=== PATIENT | male | born 1945 | race Caucasian/White ===

== ENCOUNTER → 2018-03-22 11:09 | Outpatient (CLI) | payer MEDICARE, OTHER, SELFPAY ==
[2018-03-22 12:44] LABS: PSA,Total - Annual Screen 2.38 ng/mL (0.00-4.00)
== END ==
PROVIDERS: Family Provider Family Medicine; PCP Family Medicine; Visit Provider Urology
DX: Z12.5 Encounter for screening for malignant neoplasm of prostate (principal)
CPT/HCPCS: 36415; 84153; G0103

== ENCOUNTER → 2019-04-23 10:22 | Outpatient (CLI) | payer MEDICARE, OTHER, SELFPAY ==
[2015-05-24 13:25] VITALS: BMI 25.7
[2019-04-23 12:09] LABS: PSA,Total - Annual Screen 2.25 ng/mL (0.00-4.00)
== END ==
PROVIDERS: Family Provider Family Medicine; PCP Family Medicine; Referring Provider Nurse Practitioner Adult Health; Visit Provider Nurse Practitioner Adult Health
DX: Z12.5 Encounter for screening for malignant neoplasm of prostate (principal)
CPT/HCPCS: 36415; 84153; G0103

== ENCOUNTER → 2020-05-22 | Outpatient (CLI) | payer MEDICARE, OTHER, SELFPAY ==
[2015-05-24 13:25] VITALS: BMI 25.7
[2020-05-22 15:10] LABS: PSA,Total - Annual Screen 2.71 ng/mL (0.00-4.00)
== END | disposition home or self-care (01) ==
LOC: LAB 14:03
PROVIDERS: PCP Family Medicine
DX: Z12.5 Encounter for screening for malignant neoplasm of prostate (principal)
CPT/HCPCS: 36415; 84153; G0103

== ENCOUNTER → 2020-08-13 | Outpatient (CLI) | payer MEDICARE, OTHER, SELFPAY | END | disposition home or self-care (01) | LOC: MTDU 17:16 | PROVIDERS: PCP Family Medicine; Referring Provider Nurse Practitioner Family; Visit Provider Nurse Practitioner Family | DX: J02.9 Acute pharyngitis, unspecified (principal); Z20.828 Contact with and (suspected) exposure to other viral communicable diseases | CPT/HCPCS: 87635; C9803; U0003 ==

== ENCOUNTER → 2021-06-11 12:15 | Outpatient (CLI) | payer MEDICARE, OTHER, SELFPAY ==
[2015-05-24 13:25] VITALS: BMI 25.7
[2021-06-11 13:07] LABS: PSA,Total - Annual Screen 3.16 ng/mL (0.00-4.00)
== END ==
PROVIDERS: PCP Family Medicine; Referring Provider Nurse Practitioner Adult Health; Visit Provider Nurse Practitioner Adult Health
DX: Z12.5 Encounter for screening for malignant neoplasm of prostate (principal)
CPT/HCPCS: 36415; 84153; G0103

== ENCOUNTER → 2022-06-15 | Outpatient (CLI) | payer MEDICARE, OTHER, SELFPAY ==
[2022-06-15 12:30] LABS: PSA,Total - Annual Screen 3.32 ng/mL (0.00-4.00)
== END | disposition home or self-care (01) ==
PROVIDERS: PCP Family Medicine; Referring Provider Urology; Visit Provider Urology
DX: Z12.5 Encounter for screening for malignant neoplasm of prostate (principal)
CPT/HCPCS: 36415; 84153; G0103

== ENCOUNTER → 2023-06-23 | Outpatient (CLI) | payer MEDICARE, OTHER, SELFPAY ==
[2023-06-23 13:03] LABS: PSA,Total - Annual Screen 4.56 ng/mL (0.00-4.00)
== END | disposition home or self-care (01) ==
LOC: LAB 11:30
PROVIDERS: PCP Family Medicine; Referring Provider Urology; Visit Provider Urology
DX: Z12.5 Encounter for screening for malignant neoplasm of prostate (principal)
CPT/HCPCS: 36415; 84153; G0103

== ENCOUNTER 2023-12-08 08:30 | Outpatient (RCR) | payer MEDICARE, OTHER, SELFPAY ==
--- NOTE | 2023-09-08 11:22 | HP.PTEVAL_ITS ---
Patient's Visit Information Visit Information Visit Information: LALO RUSH is a 77 year old M referred to Physical Therapy by Dr. Tito Lincoln MD with a diagnosis of Acute Left Sided LBP with Left Sided Sciatica. Date of Evaluation: 09/08/23 Physical Therapist: Aniya Hardwick DPT Visit Plan Frequency: 2x /Week Duration: 4 Weeks Plan: Focus on core strength/stabilization *PACEMAKER HEP Given IE: postural correction Subjective Subjective: Patient reports that he has had back issues for over 40 years- previously he has been told to do ex and keep it strong. About 3 months ago if he wakes up after sleeping on his stomach or on his right side- the left side of his back around the waist area is sore- 8-10- after an hour or 3 hour it goes away- he has some residual pain that goes away. He has a sleep number bed for the last 18 years and its has been fine. He has not had an x-ray yet and is planning on getting one after PT. He has a long history of back issues- he has not had any back surgeries- he was a runner for years and then he had to switch to cycling - up until this year he was doing about a 1,000 miles a week. He does some rotational exercises, sit ups, push ups and golfing. 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 The only pattern he notices is if he is on his stomach or his left side. He was diagnosed with osteoporosis in the mid he has a pacemaker and he has had two ablasions. He describes the pain as aggravating. He has more discomfort after an activity like gardening. As of two weeks ago it started radiating down the front of his leg to the ankle- more of a soreness and ache- no N/T or sharp pains- only on the left side. No buckling of weakness of the LE. No severe trauma or injuries to the back or lumbar spine. Sleep Number Bed: he has changed the number over the past few years- he has the bed flat- he likes to sleep on his side. He is sitting on a love seat in the living room and he likes to read and he is sitting in an office chair in his office. So he is sitting more than he has been before. PMHx/Meds: eliquis, uroxatral, trazodone, hydrochlorothiazide, lipitor, metroprolol, fozamax, flecainide, duloxetine, Objective Objective: Posture: forward head, rounded shoulder- can correct but is unable to maintain throughout treatment session Gait: no deviation noted HR/TR: able without UE A SLS: Left: 2-3 seconds Right: 5 seconds Sensation: WNL to gross touch bilateral LE Reflex: 2+ Bilateral LE patella ROM: WFL in all planes but does report discomfort with extension Strength: Core: fair minus, Hip: 4/5 throughout, Knee: 5/5, Ankle: 5/5 Flex: HS: moderate, Gastroc: moderate Palpation: tender along paraspinals of the left lumbar spine Special Test: prone lying increased symptoms, SKTC: did not change symptoms Special Tests L Hip NATALI - Intraarticular Pathology: Negative L Hip FADDIR - Labrum: Negative L Hip Trendelenberg - Glut Medius: Negative Balance/Special Test Scores Oswestry Low Back Score: 0 Goals Goal 1:: Patient will report participation in home exercise program activities a minimum of 5 days per week, as adjunct to skilled physical therapy intervention in preparation for independent home management upon discharge. Goal Time Frame: 4-6 Weeks Goal 2:: Patient will report no radicular s/s for 1 week to ease ADL's. Goal Time Frame: 4-6 Weeks Goal 3:: Patient will maintain proper posture t/o tx session to demo increased core s/s Goal Time Frame: 4-6 Weeks Goal 4:: Patient will report 80% better to ease ADL's. Goal Time Frame: 4-6 Weeks Rehabilitation Potential Physical Therapy Diagnosis: Patient presents with hypomobility- he has decreased LE and core strength/stabilization, flex and muscular endurance leading to poor posture and increased pain with ADL's. Rehabilitation Potential: Good Anticipated Interventions Patient/Client Instruction: Educate patient on: Benefits of Fitness Program Therapeutic Exercise to Include: Strength training, Endurance training, Balance training, Agility training, Body mechanics, Postural training, Flexibilty training, Neuromotor development, Dynamic Lumbar Stabilization and Scapular Strength/Stabilization For the Purpose of:: To improve muscle performance and motor function TENS: No (Pacemaker) Cryotherapy (ice pack, ice massage): Yes Thermo therapy (hot pack): Yes Text: Thank you for the opportunity to evaluate your patient. For Medicare and Medicare HMO plans, please review the plan of care and approve it. It will need to be FAXED BACK to us at [phone] for Medicare purposes. For Medicare only, by signing this I certify the plan of care. Please let me know if there are questions or concerns regarding this plan of care. Physician Signature: Date:
--- NOTE | 2023-10-04 11:56 | HP.PTREVAL ---
Re-Evaluation Intro: Dr. Tito Lincoln MD, It has been my pleasure to treat LALO RUSH over the last 9 visits for Acute Left Sided LBP with Left Sided Sciatica. Please see the progress note below for an update on the physical therapy plan of care! Subjective Subjective: Pt reports he still gets a pinching in the L LB, but he is much improved overall. Objective Objective/Function: LBP ranges from 3-8/10 Pt reports no L LE radiculopathy for greater than one week Pt is I with HEP Pt has progressed well with LE radiculopathy and overall pain. Still limited with IADL's. Plan Plan Plan: Continue with Focus on core strength/stabilization *PACEMAKER Balance/Gait/Functional tests Balance/Special Test Scores Oswestry Low Back Score: 4 Goals Goals Goal 1:: Patient will report participation in home exercise program activities a minimum of 5 days per week, as adjunct to skilled physical therapy intervention in preparation for independent home management upon discharge. Goal Time Frame: 4-6 Weeks Goal Progress: Goal Met Goal 2:: Patient will report no radicular s/s for 1 week to ease ADL's. Goal Time Frame: 4-6 Weeks Goal Progress: Goal Met Goal 3:: Patient will maintain proper posture t/o tx session to demo increased core s/s Goal Time Frame: 4-6 Weeks Goal Progress: Unable to assess Goal 4:: Patient will report 80% better to ease ADL's. Goal Time Frame: 4-6 Weeks Goal Progress: Progressing Anticipated Interventions Anticipated Interventions Patient/Client Instruction: Educate patient on: Benefits of Fitness Program Therapeutic Exercise to Include: Strength training, Endurance training, Balance training, Agility training, Body mechanics, Postural training, Flexibilty training, Neuromotor development, Dynamic Lumbar Stabilization and Scapular Strength/Stabilization For the Purpose of:: To improve muscle performance and motor function TENS: No (Pacemaker) Cryotherapy (ice pack, ice massage): Yes Thermo therapy (hot pack): Yes Re-Evaluation Ending Re-evaluation ending: Please do not hesitate to contact me at [phone] by phone or if you have questions or concerns regarding this new plan of care! Sincerely, Baljinder Harris, PT, ATC
--- NOTE | 2023-12-14 10:19 | HP.PTDCSUM ---
Discharge Summary D/C summary: It has been my pleasure to treat LALO RUSH referred by Dr. Tito Lincoln MD, with the diagnosis of Acute Left Sided LBP with Left Sided Sciatica for a total of 17 visit(s). Discharge Date: Please see the following information for a summary of their discharge status. Subjective Subjective: Pt reports very mild pain today. Notes he is ready to continue I Pain LBP: Pain Intensity (Out of 10): 1 Overall Improvement % Improvement: 55 Objective Objective/Function: LBP ranges from 0-1/10 L/S ROM is moderately limited with extension. All other ranges are WNL Pt reports no LE radiculopathy at this time. Pt displays proper posture and postural awareness at this time. Pt is I with gym routine Goals Goal 1:: Patient will report participation in home exercise program activities a minimum of 5 days per week, as adjunct to skilled physical therapy intervention in preparation for independent home management upon discharge. Goal Progress: Not observed Goal 2:: Patient will report no radicular s/s for 1 week to ease ADL's. Goal Progress: Goal Met Goal 3:: Patient will maintain proper posture t/o tx session to demo increased core s/s Goal Progress: Unable to assess Goal 4:: Patient will report 80% better to ease ADL's. Goal Progress: Goal Met Plan Plan: Discharge to I gym routine D/C Information d/c sentence: If there are questions or concerns regarding this patient's physical therapy, please feel free to call me at [phone]. Thank you for the referral of this patient. Sincerely, Baljinder Harris, PT, ATC Balance/Gait/Functional tests Balance/Special Test Scores Oswestry Low Back Score: 4 Improvement % Improvement: 55
== END 2023-12-08 19:00 | disposition home or self-care (01) ==
LOC: PT 08:30
PROVIDERS: PCP Family Medicine; Visit Provider Family Medicine
DX: M54.42 Lumbago with sciatica, left side (principal)
CPT/HCPCS: 97110; 97162; 97164

== ENCOUNTER → 2024-06-25 | Outpatient (CLI) | payer MEDICARE, OTHER, SELFPAY ==
[2024-06-25 10:34] LABS: PSA,Total- Diagnostic 3.65 ng/mL (0.0-4.0)
== END | disposition home or self-care (01) ==
LOC: LAB 09:23
PROVIDERS: PCP Family Medicine; Referring Provider Urology; Visit Provider Urology
DX: R97.20 Elevated prostate specific antigen [PSA] (principal)
CPT/HCPCS: 36415; 84153

== ENCOUNTER → 2025-06-27 | Outpatient (CLI) | payer MEDICARE, OTHER, SELFPAY ==
[2025-06-27 10:39] LABS: AST(SGOT) 35 U/L (<=37); Alanine Aminotransfer ALT/SGPT 25 U/L (<=46); Albumin, Serum 4.3 g/dL (3.4-4.8); Alkaline Phosphatase 67 U/L (40-129); Anion Gap 11 (5-15); BUN 23 mg/dL (4-19); BUN/Creat Ratio 21.7 RATIO (10-20); Calcium,Total 9.6 mg/dL (7.6-11.0); Carbon Dioxide 27.7 mmol/L (21.0-32.0); Chloride 106 mmol/L (98-108); Globulin 2.5 g/dL (2.2-4.2); Glucose 99 mg/dL (70-99); Potassium 3.8 mmol/L (3.3-5.1)
[2025-06-27 11:14] LABS: PSA,Total- Diagnostic 3.71 ng/mL (0.00-4.00)
== END | disposition home or self-care (01) ==
PROVIDERS: Urology; PCP Family Medicine; Referring Provider Nurse Practitioner Primary Care; Visit Provider Nurse Practitioner Primary Care
DX: N40.1 Benign prostatic hyperplasia with lower urinary tract symptoms (principal); I10 Essential (primary) hypertension
CPT/HCPCS: 36415; 80053; 84153